=== PATIENT | male | born 1955 | race Two or more races ===

== ENCOUNTER 2018-01-13 12:30 | Day surgery (SDC) | payer OTHER, BC ==
[2018-01-13] MEDS ORDERED: PROPOFOL 20 ML (13:27)
== END 2018-01-13 15:32 | disposition home or self-care (01) ==
LOC: GIL 12:30
DX: K29.50 Unspecified chronic gastritis without bleeding (principal); K44.9 Diaphragmatic hernia without obstruction or gangrene; E78.5 Hyperlipidemia, unspecified; I10 Essential (primary) hypertension
CPT/HCPCS: 43239; 88305; 88312